=== PATIENT | female | born 1955 | race African-American/Black ===

== ENCOUNTER 2017-04-28 12:15 | Outpatient (CLI) | payer OTHER | END 2017-04-28 12:16 | disposition home or self-care (01) | LOC: BICRAD 12:15 | PROVIDERS: ATTEND Family Medicine | DX: M89.9 Disorder of bone, unspecified (principal) | CPT/HCPCS: 71130 ==

== ENCOUNTER 2017-07-29 14:20 | Outpatient (CLI) | payer OTHER ==
--- NOTE | 2017-07-29 15:49 | ULT ---
ULTRASOUND RENAL BILATERAL STANDARD 07/29/17 HISTORY: Chronic kidney disease stage II. COMPARISON: None. TECHNIQUE: Ultrasound winter scale and color evaluation of the kidneys is performed with the curvilinear transduce r. FINDINGS: The right kidney measures 11.3 x 5.5 x 5.6 cm without mass, hydronephrosis or abnormal calcifications . Prior left nephrectomy. Prevoid urinary bladder volume is 11 mL. IMPRESSION: Normal right kidney. POS: [facility]
== END 2017-07-29 14:21 | disposition home or self-care (01) ==
LOC: ULT 14:20
PROVIDERS: ATTEND Internal Medicine Nephrology
DX: N18.2 Chronic kidney disease, stage 2 (mild) (principal); Q61.9 Cystic kidney disease, unspecified
CPT/HCPCS: 76770

== ENCOUNTER 2017-12-22 08:37 | Outpatient (CLI) | payer BC ==
[~2017-12-22 08:37] MED LIST: ISOVUE-370 76%-LOCM 1 ML ONE
== END 2017-12-22 08:38 | disposition home or self-care (01) ==
LOC: BICCT 08:37
PROVIDERS: ATTEND Internal Medicine Nephrology
DX: N28.89 Other specified disorders of kidney and ureter (principal)
CPT/HCPCS: 74170; 82565

== ENCOUNTER 2020-02-25 10:40 | Outpatient (CLI) | payer MEDICARE ==
--- NOTE | 2020-02-25 11:23 | MMO ---
Bilateral MAMMO Bilat Screen [facility]. CLINICAL HISTORY: Patient is 65 years old and is seen for screening. The patient has the following family history of breast cancer: sister, at age 45. The patient has no personal history of cancer. VIEWS: The views performed were: bilateral craniocaudal with tomosynthesis and bilateral mediolateral oblique with tomosynthesis. FILMS COMPARED: The present examination has been compared to a prior imaging study performed at [facility] on 04/29/2014. This study has been interpreted with the assistance of computer-aided detection. MAMMOGRAM FINDINGS: There are scattered fibroglandular densities. There are no suspicious masses, suspicious calcifications, or new areas of architectural distortion. IMPRESSION: THERE IS NO MAMMOGRAPHIC EVIDENCE OF MALIGNANCY. A ROUTINE FOLLOW-UP MAMMOGRAM IN 1 YEAR IS RECOMMENDED. THE RESULTS OF THIS EXAM WERE SENT TO THE PATIENT. ACR BI-RADS Category 1 - Negative MAMMOGRAPHY NOTE: 1. A negative mammogram report should not delay a biopsy if a dominant of clinically suspicious mass is present. 2. Approximately 10% to 15% of breast cancers are not detected by mammography. 3. Adenosis and dense breasts may obscure an underlying neoplasm. Reported by: MISAEL CUETO MD Electonically Signed: [id number]
== END 2020-02-25 10:41 | disposition home or self-care (01) ==
LOC: BICMAMMO 10:40
PROVIDERS: ATTEND Family Medicine
DX: Z12.31 Encounter for screening mammogram for malignant neoplasm of breast (principal); Z80.3 Family history of malignant neoplasm of breast
CPT/HCPCS: 77063; 77067

== ENCOUNTER 2023-10-24 09:57 | Outpatient (CLI) | payer MEDICARE | END 2023-10-24 09:58 | disposition home or self-care (01) | LOC: BICMAMMO 09:57 | PROVIDERS: ATTEND Family Medicine | DX: Z12.31 Encounter for screening mammogram for malignant neoplasm of breast (principal); Z80.3 Family history of malignant neoplasm of breast; N64.89 Other specified disorders of breast | CPT/HCPCS: 77063; 77067 ==

== ENCOUNTER 2023-10-28 14:46 | Outpatient (CLI) | payer MEDICARE | END 2023-10-28 14:47 | disposition home or self-care (01) | LOC: BICMAMMO 14:46 | PROVIDERS: ATTEND Family Medicine | DX: N64.89 Other specified disorders of breast (principal) | CPT/HCPCS: 77065; G0279 ==